=== PATIENT | female | born 1975 | race Caucasian/White ===

== ENCOUNTER 2016-11-17 10:17 | Emergency (ER) | payer MEDICAID, OTHER ==
[~2016-11-17] VITALS: Ht 154.9 cm; Wt 63.0 kg
[2016-11-17 10:34] VITALS: Ht 154.9 cm; Wt 63.0 kg
--- NOTE | 2016-11-17 11:51 | RADRPT ---
PROCEDURE: Chest Radiograph. CLINICAL INDICATION: Shortness of breath TECHNIQUE: Single frontal chest radiograph. COMPARISON: None available FINDINGS: A right chest wall port infusion catheter is in place with distal tip in the region of the cavoatria l junction. Heart size is poorly evaluated. There is suggested mild central vascular congestion . There are small to moderate bilateral pleural effusions with adjacent atelectasis/infiltrate. Th ere is suggestion of prior left mastectomy and axillary node dissection. The bones are grossly inta ct. IMPRESSION: 1. Small to moderate bilateral pleural effusions with adjacent atelectasis/infiltrate. RPTAT: KK .Zain Jj MD, MD Date Time Electronically viewed and signed by .Zain Jj MD, on 11/17/2016 11:50 .B/
[2016-11-17] MEDS ORDERED: ALBU8.5H3 INH (12:22)
--- NOTE | 2016-11-17 12:25 | ERD ---
ER Documentation Chief Complaint Date/Time DATE: 11/17/16 TIME: 12:23 Chief Complaint SHORTNESS OF BREATH X 2 WEEKS HPI 41-year-old female with a past medical history of breast cancer presents the ED complaining of shortness of breath that started 2 weeks ago. States that she was here at the hospital and had a dry cough and fever. However no previous hospital records are [facility]. Reports that she has been diagnosed with pneumonia and has been taking levofloxacin. States that she has 1 pill left. Denies any wheezing, chest pain, abdominal pain, nausea, vomiting. was with her at this time reported that patient did have a history of pleural effusions where she had to receive a thoracentesis and was admitted for this diagnosis in the past - unsure of which year. Patient is also receiving chemotherapy for breast cancer. Denies any smoking, alcohol use, drug use. ROS All systems reviewed and are negative except as per history of present illness. Medications Home Meds Active Scripts Albuterol Sulfate* (Proair HFA*) 8.5 Gm Hfa.aer.ad, 2 PUFF INH Q4, #1 INHALER Prov:MAURICE VERDIN PA-C 11/17/16 PMhx/Soc Medical and Surgical Hx: pt denies Medical Hx, pt denies Surgical Hx Hx Alcohol Use: No Hx Substance Use: No Hx Tobacco Use: No Physical Exam Vitals Vital Signs Date Time Temp Pulse Resp B/P Pulse Ox O2 Delivery O2 Flow Rate FiO2 11/17/16 12:42 77 18 138/62 99 Room Air 11/17/16 10:34 97.7 74 19 122/72 97 Physical Exam Const: Ihl-[id number]-socsizzjk, well-nourished. In no acute distress. Head: Atraumatic, normocephalic Eyes: Normal Conjunctiva without injection. No purulent discharge. PERRL. EOMI ENT: Normal external ear. Ear canal without erythema. Tympanic membrane pearly denise without effusion or bulging. Nasal canal clear with normal turbinates. Moist oropharynx without tonsillar exudates. Non-erythematous pharynx. Uvula midline. No drooling. No trismus. Neck: Full range of motion. No meningismus. No cervical lymphadenopathy. Resp: Clear to auscultation bilaterally. No wheezing, rhonchi, rales, or crackles. No accessory muscle use. No retractions. Cardio: Regular rate and rhythm. No murmurs, rubs or gallops. Abd: Soft, non tender, non distended. Normal bowel sounds. No palpable masses. No rebound tenderness. No guarding. Skin: No petechiae or rashes Back: No midline tenderness. No CVA tenderness. Ext: No cyanosis, or edema. Neur: Awake and alert. Psych: Normal Mood and Affect Procedures/MDM 41-year-old female with a past medical history of breast cancer presents to the ED complaining of shortness of breath that started 2 weeks ago. Patient is afebrile and nontoxic-appearing. Patient has normal vital signs. Patient has a pulse oximetry of 97%. Patient does not appear in respiratory distress. A chest x-ray and EKG was ordered to further evaluate patient. EKG reviewed and interpreted by Dr. Johns Rate/Rhythm: [78 bpm, Normal Sinus Rhythm] No ectopy, no ST elevations, normal axis. QRS, ST, T-waves: [No changes consistent w/ acute ischemia] Impression: [No evidence of ischemia or arrhythmia] PROCEDURE: Chest Radiograph. CLINICAL INDICATION: Shortness of breath TECHNIQUE: Single frontal chest radiograph. COMPARISON: None available FINDINGS: A right chest wall port infusion catheter is in place with distal tip in the region of the cavoatrial junction. Heart size is poorly evaluated. There is suggested mild central vascular congestion . There are small to moderate bilateral pleural effusions with adjacent atelectasis/infiltrate. There is suggestion of prior left mastectomy and axillary node dissection. The bones are grossly intact. IMPRESSION: 1. Small to moderate bilateral pleural effusions with adjacent atelectasis/ infiltrate. Patient has a small to moderate bilateral pleural effusion noted on her chest x- ray. This case was discussed with my supervising physician, Dr. Johns. Reported that patient can be managed on outpatient basis. There is no indication for admission at this time. This could be chronic or secondary to pneumonia and the reason for patient's SOB. Low suspicion for acute myocardial infarction, pneumothorax, CHF, pneumonia, cardiac tamponade, pulmonary embolism , AAA, aortic dissection, Boerhaave's syndrome, cardiac dysrhythmias,meningitis , intracranial bleed, seizure, stroke, TIA or other emergent conditions. Patient is hemodynamically stable. Discharge medications: Pro-air inhaler. Strictly instructed patient to complete Levofloxacin. Follow up with primary care physician and oncologist in 1-2 days. Instructed patient to return to the ED sooner for any worsening symptoms. Patient's questions were answered. Patient understood and agreed with discharge plan. Patient discharged stable. Departure Diagnosis: Primary Impression: Shortness of breath Condition: Stable Patient Instructions: Pleural Effusion Referrals: MARY DYKES MD (PCP) [facility] YOU HAVE RECEIVED A MEDICAL SCREENING EXAM AND THE RESULTS INDICATE THAT YOU DO NOT HAVE A CONDITION THAT REQUIRES URGENT TREATMENT IN THE EMERGENCY DEPARTMENT. FURTHER EVALUATION AND TREATMENT OF YOUR CONDITION CAN WAIT UNTIL YOU ARE SEEN IN YOUR DOCTORS OFFICE WITHIN THE NEXT 1-2 DAYS. IT IS YOUR RESPONSIBILITY TO MAKE AN APPOINTMENT FOR FOLOW-UP CARE. IF YOU HAVE A PRIMARY DOCTOR --you should call your primary doctor and schedule an appointment IF YOU DO NOT HAVE A PRIMARY DOCTOR YOU CAN CALL OUR PHYSICIAN REFERRAL HOTLINE AT IF YOU CAN NOT AFFORD TO SEE A PHYSICIAN YOU CAN CHOSE FROM THE FOLLOWING [facility] [address] [facility] [address] [facility] [address] [facility] [address] [facility] [address] [facility]. [facility]. [address] [facility]. [facility] YOU HAVE RECEIVED A MEDICAL SCREENING EXAM AND THE RESULTS INDICATE THAT YOU DO NOT HAVE A CONDITION THAT REQUIRES URGENT TREATMENT IN THE EMERGENCY DEPARTMENT. FURTHER EVALUATION AND TREATMENT OF YOUR CONDITION CAN WAIT UNTIL YOU ARE SEEN IN YOUR DOCTORS OFFICE WITHIN THE NEXT 1-2 DAYS. IT IS YOUR RESPONSIBILITY TO MAKE AN APPOINTMENT FOR FOLOW-UP CARE. IF YOU HAVE A PRIMARY DOCTOR --you should call your primary doctor and schedule and appointment IF YOU DO NOT HAVE A PRIMARY DOCTOR YOU CAN CALL OUR PHYSICIAN REFERRAL HOTLINE AT . IF YOU CAN NOT AFFORD TO SEE A PHYSICIAN YOU CAN CHOSE FROM THE FOLLOWING [facility] INSTITUTIONS: [facility] [address] [place] [address] [facility] [address] [place] [address] [facility] [address] [place] [address] [facility] URGENT [facility]/SPECIALTIES Additional Instructions: Visite a moncada janet arias para un EXAMEN.Regrese a estas instalaciones si no se mejora ruthy esperbamos o ruthy le dijimos. MAURICE VERDIN PA-C Nov 17, 2016 12:25
[2016-11-17 12:42] VITALS: BP 138/62; PULSE 77; RESP 18
== END 2016-11-17 12:43 | disposition home or self-care (01) ==
LOC: FTE 10:17
DX: R06.02 Shortness of breath (principal); Z85.3 Personal history of malignant neoplasm of breast
CPT/HCPCS: 71010; 93005; Z7502